=== PATIENT | female | born 1945 | race Caucasian/White ===

== ENCOUNTER 2020-09-30 10:52 | Day surgery (SDC) | payer MEDICARE ==
[2020-09-24 15:54] VITALS: BMI 40.7
[~2020-09-30 10:52] MED LIST: ALPRAZolam 0.25 MG TAB PO PRN; ALPRAZolam 0.5 MG TAB PO PRN; ASPIRIN 325 MG TAB PO STA; ATORVASTATIN 80 MG TAB PO STA; HEPARIN SODIUM,PORCINE 10,000 UNIT in SODIUM CHLORIDE 0.9% 1,000 ML IRRIGATION PRN; HEPARIN SODIUM,PORCINE 2,500 UNIT in SODIUM CHLORIDE 0.9% 250 ML IRRIGATION PRN; NITROGLYCERIN SL TABS 0.4 MG TAB SUBLINGUAL PRN; SODIUM CHLORIDE 0.9% 1,000 ML in EMPTY BAG 1 BAG IV ONE
[2020-09-30] MEDS ORDERED: SODIUM CHLORIDE 0.9% 1,000 ML IV ONE (11:00)
[2020-09-30 11:39] LABS: Basophils # (A) 0.1 k/uL (0-0.2); Basophils % (A) 1 %; Eosinophils # (A) 0.2 k/uL (0-0.7); Eosinophils % (A) 3 %; HCT 46.9 % (34.0-46.0); HGB 15.1 gm/dL (11.4-16.0); Lymphocytes # (A) 1.7 k/uL (1.0-4.8); Lymphocytes % (A) 23 %; MCH 30.8 pg (25.0-35.0); MCHC 32.3 g/dL (31.0-37.0); MCV 95.5 fL (80.0-100.0); Mean Platelet Volume 8.5; Monocytes # (A) 0.4 k/uL (0-1.0); Monocytes % (A) 6 %; Neutrophils # (A) 4.7 k/uL (1.3-7.7); Neutrophils % (A) 66 %; Platelet Count 289 k/uL (150-450); RBC 4.91 m/uL (3.80-5.40); WBC 7.2 k/uL (3.8-10.6)
[2020-09-30 11:45] VITALS: RESP 16; TEMP 98.3
[2020-09-30 11:46] LABS: African American GFR (CKD) >90 (>60 ml/min/1.73 sqM); Anion Gap 10 mmol/L; Blood Urea Nitrogen 14 mg/dL (7-17); Calcium 9.3 mg/dL (8.4-10.2); Carbon Dioxide 25 mmol/L (22-30); Chloride 106 mmol/L (98-107); Glucose 116 mg/dL (74-99); Non-African American GFR(CKD) 84 (>60 ml/min/1.73 sqM); Sodium 141 mmol/L (137-145)
[2020-09-30 11:55] LABS: Potassium 4.5 mmol/L (3.5-5.1)
[2020-09-30] MEDS ORDERED: fentaNYL (PF) 50 MCG/ML 2 ML AMP IV ONE (12:19)
[2020-09-30] MEDS ORDERED: MIDAZOLAM 2 MG/2 ML VIAL IV ONE (12:19)
[2020-09-30] MEDS ORDERED: LIDOCAINE 1% INJ 10MG/ML (20 ML MDV) SQ ONE (12:20)
[2020-09-30] MEDS ORDERED: VERAPAMIL SYRINGE (5 MG/10 ML) INTRAARTER ONE (12:22)
[2020-09-30] MEDS ORDERED: RX INFO: IV CONTRAST WAS GIVEN 1 EACH MISC MISCELLANE PRN (14:03)
--- NOTE | 2020-09-30 14:03 | P.CARDCATH ---
Description of Procedure: PROCEDURES PERFORMED: Left heart catheterization, bilateral coronary angiography, iFR INDICATION: Abnormal stress test HISTORY: Patient is a pleasant 75-year-old female with history of obesity, hypertension and hypothyroidism who has been having increased shortness breath with exertion over the past few years. She had workup with a stress test which showed a large area of ischemia in the anterior LAD distribution. Therefore recommendation was for heart catheterization. CONSENT:I have discussed the risks, benefits and alternative therapies for the above-mentioned procedure and for both sedation/analgesia as well as necessary blood product administration, if indicated, as they pertain to this patient. The patient has indicated understanding and acceptance of the risks and procedures discussed. PROCEDURE: After the risks, benefits and alternatives of the above mentioned procedure explained in detail with the patient, informed consent was obtained. Patient was taken to the catheterization lab and prepped and draped in usual fashion. 1% lidocaine was used to anesthetize the right radial artery. A 6- Honduran sheath was placed in the right radial artery using modified Seldinger technique. Left coronary angiography was performed with a 5-Honduran JL 3.5 catheter and right coronary angiography was performed with a 5-Honduran JR5 catheter in various views. The 5-Honduran FR5 catheter was inserted into the left ventricle and pressure measurements were obtained. The mid LAD had a 40-50% stenosis which was in the area of ischemia and therefore decision was made to perform iFR. The left main was engaged with a CLS 3.5 guide. The 0.014 iFR guidewire was normalized and the left main and then advance 2 cm distal to the LAD lesion. iFR was normal at 0.91. The wire and catheter were then removed. The right radial sheath was removed and a TR band was placed with hemostasis achieved. The patient tolerated the procedure well. Patient was transported back to the post catheterization holding area in stable condition. Conscious Sedation: Patient was monitored under the direct supervision of vision of myself for conscious sedation using Versed and fentanyl for a total duration of 47 minutes HEMODYNAMICS: Aorta: 167/82 LV: 164/2 LVEDP 10mmHg SELECTIVE CORONARY ARTERIOGRAPHY: LEFT MAIN: The left main is a large caliber vessel which bifurcates into the LAD and circumflex. There is no significant stenosis. LEFT ANTERIOR DESCENDING CORONARY ARTERY: LAD is a large caliber vessel which wraps around to the apex. There is a mid LAD 40-50% stenosis at the level of a moderate caliber diagonal 2 branch. iFR was normal at 0.91 LEFT CIRCUMFLEX CORONARY ARTERY: Left circumflex is a moderate caliber vessel without significant stenosis. RIGHT CORONARY ARTERY: The right coronary artery is a large caliber vessel which gives off a PDA and PLV branch and is the dominant vessel. There are mild luminal irregularities up to 30% of the RCA. FINAL IMPRESSION: 1. Mild to moderate CAD as described above including mid LAD 40-50% stenosis. iFR of mid LAD normal at 0.91. 2. Normal left-sided filling pressures 3. False-positive stress test, suspect shifting breast attenuation artifact. PLAN: 1. Aggressive risk factor modification per most recent ACC/AHA guidelines. May consider addition of statin however we will check cholesterol levels. 2. Follow-up in the office in 1-2 weeks.
[2020-09-30 14:48] LABS: Cholesterol 217 mg/dL (<200); HDL Cholesterol 55 mg/dL (40-60); LDL Cholesterol,Calculated 129 mg/dL (0-99); Triglycerides 163 mg/dL (<150)
[2020-09-30 16:11] VITALS: PULSE 68
[2020-09-30 16:45] VITALS: BP 134/74
== END 2020-09-30 16:45 | disposition home or self-care (01) ==
LOC: CATHCVL 10:52
PROVIDERS: ATTEND Internal Medicine
DX: I25.10 Atherosclerotic heart disease of native coronary artery without angina pectoris (principal); I10 Essential (primary) hypertension; E03.9 Hypothyroidism, unspecified; R94.39 Abnormal result of other cardiovascular function study; Z72.0 Tobacco use; E66.9 Obesity, unspecified; Z68.41 Body mass index [BMI] 40.0-44.9, adult; I71.4 Abdominal aortic aneurysm, without rupture; Z82.49 Family history of ischemic heart disease and other diseases of the circulatory system; Z79.890 Hormone replacement therapy; Z91.018 Allergy to other foods
CPT/HCPCS: 93571; 93458; 80061; 80048; 85025; C1887; C1769; C1894; J2250; J2001; J3010; J1644

== ENCOUNTER 2020-12-03 05:59 | Inpatient (IN) | payer MEDICARE ==
[2020-11-29 10:10] VITALS: BMI 41.5
[~2020-12-03 05:59] MED LIST changes: -ALPRAZolam 0.25 MG TAB PO PRN; -ALPRAZolam 0.5 MG TAB PO PRN; -ASPIRIN 325 MG TAB PO STA; -ATORVASTATIN 80 MG TAB PO STA; +DEXAMETHASONE SOD PHOSPHATE 4 MG/ML 1 ML VIAL IV ONE; -HEPARIN SODIUM,PORCINE 10,000 UNIT in SODIUM CHLORIDE 0.9% 1,000 ML IRRIGATION PRN; -HEPARIN SODIUM,PORCINE 2,500 UNIT in SODIUM CHLORIDE 0.9% 250 ML IRRIGATION PRN; +MIDAZOLAM 2 MG/2 ML VIAL IV PRN; -NITROGLYCERIN SL TABS 0.4 MG TAB SUBLINGUAL PRN; +ONDANSETRON 4 MG/2 ML VIAL IVP ONE
[2020-12-03] MEDS ORDERED: ceFAZolin 3 GM in SODIUM CHLORIDE 0.9% 100 ML IVPB PRN (06:00)
[2020-12-03] MEDS ORDERED: SODIUM CHLORIDE 0.9% 1,000 ML IV ONE (06:16)
[2020-12-03 06:41] LABS: Basophils # (A) 0.1 k/uL (0-0.2); Basophils % (A) 1 %; Eosinophils # (A) 0.2 k/uL (0-0.7); Eosinophils % (A) 2 %; HCT 46.3 % (34.0-46.0); HGB 15.4 gm/dL (11.4-16.0); Lymphocytes # (A) 1.9 k/uL (1.0-4.8); Lymphocytes % (A) 23 %; MCH 31.6 pg (25.0-35.0); MCHC 33.2 g/dL (31.0-37.0); MCV 95.2 fL (80.0-100.0); Mean Platelet Volume 8.3; Monocytes # (A) 0.4 k/uL (0-1.0); Monocytes % (A) 5 %; Neutrophils # (A) 5.4 k/uL (1.3-7.7); Neutrophils % (A) 67 %; Platelet Count 284 k/uL (150-450); RBC 4.86 m/uL (3.80-5.40); WBC 8.1 k/uL (3.8-10.6)
[2020-12-03 06:58] LABS: African American GFR (CKD) >90 (>60 ml/min/1.73 sqM); Anion Gap 8 mmol/L; Blood Urea Nitrogen 16 mg/dL (7-17); Calcium 9.4 mg/dL (8.4-10.2); Carbon Dioxide 29 mmol/L (22-30); Chloride 105 mmol/L (98-107); Glucose 128 mg/dL (74-99); Non-African American GFR(CKD) 81 (>60 ml/min/1.73 sqM); Potassium 4.1 mmol/L (3.5-5.1); Sodium 142 mmol/L (137-145)
[2020-12-03] MEDS ORDERED: LIDOCAINE 1% INJ 10MG/ML (20 ML MDV) ONE ×2 (07:15→07:30)
[2020-12-03] MEDS ORDERED: SUCCINYLCHOLINE CHLORIDE 100 MG/5 ML SYR IV ONE (07:30)
[2020-12-03] MEDS ORDERED: HEPARIN SODIUM,PORCINE 10,000 UNIT/ML 1 ML VIAL ONE (07:30)
[2020-12-03] MEDS ORDERED: ROCURONIUM 10 MG/ML (5 ML VIAL) IV ONE (07:30)
[2020-12-03] MEDS ORDERED: NEOSTIGMINE 1 MG/ML 10 ML VIAL ONE (07:30)
[2020-12-03] MEDS ORDERED: PROPOFOL 10 MG/ML 20 ML VIAL IV ONE (07:30)
[2020-12-03] MEDS ORDERED: PHENYLEPHRINE-0.9% NACL SYG 1,000 MCG/10 ML SYRINGE ONE (07:30)
[2020-12-03] MEDS ORDERED: fentaNYL (PF) 50 MCG/ML 2 ML AMP ONE (07:30)
[2020-12-03] MEDS ORDERED: MIDAZOLAM 2 MG/2 ML VIAL ONE (07:30)
[2020-12-03] MEDS ORDERED: GLYCOPYRROLATE 0.2 MG/ML 2 ML VIAL ONE (07:30)
[2020-12-03] MEDS ORDERED: LACTATED RINGERS 1,000 ML IV ONE (09:09)
[2020-12-03] MEDS ORDERED: IOPAMIDOL-370 100ML BTL INJ ONE ×2 (09:18→09:19)
[2020-12-03] MEDS ORDERED: HYDROcodone/APAP 5-325MG 1 EACH TAB PO PRN (09:41)
--- NOTE | 2020-12-03 09:53 | P.OP ---
Description of Procedure: Date: 12/03/2020 Preoperative diagnosis: Asymptomatic Infrarenal 5.8 cm AAA Postoperative diagnosis: Same Procedure: 1. Percutaneous Endovascular aortic repair with [place] device. 2. Ultrasound-guided bilateral common femoral artery access Surgeon: Afsaneh LEE Anesthesia: General Estimated blood loss: 50 cc Complications: None Condition: Stable Disposition: Palpable DP pulses bilaterally. Fluoro Time: 16.3 min Contrast: 95 cc Indications: 75-year-old female with history of AAA measuring 5.8 cm presents to the [facility] for endovascular aortic repair Operative narrative: After written and informed consent was obtained from the patient all risks benefits and complications were described the patient was bro ught to the [facility] and laid in a supine position. The area of the groins were prepped and draped in usual sterile fashion after appropriate anesthetic was performed per the anesthesiologist. A timeout was performed in normal fashion and antibiotics were administered prior to incisions. Utilizing ultrasound bilateral common femoral arteries were visualized demonstrating patency with minimal calcification. Under ultrasound guidance utilizing a multipurpose needle bilateral common femoral arteries were accessed and guidewire was placed followed by deployment of 2 Perclose closure devices for each femoral artery. Utilizing Seldinger technique and 8-Canadian sheath was then placed and patient was administered heparin and followed with ACTs. 035 Glidewire was then placed up the right femoral sheath and exchanged for a Lunderquist wire through an angled glide catheter. The left femoral artery was then utilized and guidewire was placed followed by pigtail catheter and aortogram was obtained. Utilizing the Lunderquist wire a 26 mm main body device was then loaded over the guidewire after the 8-Canadian sheath was removed. Delivery system was then placed 1 cm proximal to the intended landing site and the aortic body was oriented for appropriate access for the contralateral limb. Delivery system was then retracted out of the sheath and the aortic body radiopaque markers were verified to be in the correct position. First segment of the graft was then deployed in normal fashion by releasing and pulling the knob in normal fashion. Balloon injection port was then inflated utilizing a 4-1 saline contrast mixture in order to open the mid crown. Balloon was then deflated. Precise positioning was then performed with utilizing the radiopaque markers and parallax was removed and our to land at the renal arteries. Pigtail catheter was then retracted away from the proximal stent and the proximal stent was released in normal fashion. Polymer was then utilized and filled through the polymer port which was visualized under fluoroscopy. The stiff Lunderquist wire was then retracted within the ipsilateral limb. Attention was then placed to accessing the contralateral limb. Utilizing the Glidewire and angled glide catheter the contralateral limb was accessed and pigtail catheter was placed. Pigtail catheter was then spun to verify intragraft cannulation. A stiff wire was then placed within the pigtail catheter and retrograde angiogram was obtained demonstrating the internal iliac artery takeoff. Measurements were obtained and a 12 x 1 40 mm Ovation limb was chosen to be deployed and deployed in normal fashion. Once completed the aortic main body was completely deployed in normal fashion. Utilizing the balloon balloon angioplasty was performed at the ring to further mold the polymer to the aortic neck. Once completed the aortic body deployment sheath was removed in normal fashion. Pigtail catheter was then placed over the Lunderquist wire and retrograde angiogram was obtained with measurements to the internal iliac artery on the ipsilateral limb. A 14 x 1 40 Ovation limb was chosen and deployed in normal fashion. Once completed two 12 x 40mm balloons were placed up each iliac limb and balloon angioplasty was performed through its entirety. Once completed balloons were removed and pigtail catheter was placed above the graft and final angiogram was obtained demonstrating exclusion of the aneurysm with no evidence of endoleak's. All guidewires and catheters were then removed and the Perclose closure devices were closed in normal fashion. The areas were then cleansed and dressings were placed. The patient tolerated procedure well and had palpable DP pulses and was sent to PACU for recovery.
--- NOTE | 2020-12-03 10:14 | IR ---
EXAMINATION TYPE: IR endorepair dscnd thor aorta DATE OF EXAM: 12/03/2020 CLINICAL HISTORY: Aortic aneurysm. TECHNIQUE: Fluoroscopy. COMPARISON: None. FINDINGS: Fluoroscopic guidance was provided during endovascular aortic aneurysm repair procedure pe rformed by Dr. Shelby. A total of 16.3 minutes of fluoroscopic time was utilized during the procedu re and 114 spot images was acquired. Please refer to procedure note for further details. IMPRESSION: As Above.
[2020-12-03 10:55] LABS: Basophils # (A) 0.1 k/uL (0-0.2); Basophils % (A) 1 %; Eosinophils # (A) 0.2 k/uL (0-0.7); Eosinophils % (A) 2 %; HCT 38.1 % (34.0-46.0); HGB 13.1 gm/dL (11.4-16.0); Lymphocytes # (A) 1.6 k/uL (1.0-4.8); Lymphocytes % (A) 19 %; MCH 32.3 pg (25.0-35.0); MCHC 34.4 g/dL (31.0-37.0); Mean Platelet Volume 8.2; Monocytes # (A) 0.6 k/uL (0-1.0); Monocytes % (A) 6 %; Neutrophils # (A) 6.3 k/uL (1.3-7.7); Neutrophils % (A) 72 %; Platelet Count 223 k/uL (150-450); RBC 4.05 m/uL (3.80-5.40); RDW 12.4 % (11.5-15.5); WBC 8.8 k/uL (3.8-10.6)
[2020-12-03 11:51] LABS: African American GFR (CKD) >90 (>60 ml/min/1.73 sqM); Anion Gap 6 mmol/L; Blood Urea Nitrogen 15 mg/dL (7-17); Calcium 8.2 mg/dL (8.4-10.2); Carbon Dioxide 25 mmol/L (22-30); Chloride 110 mmol/L (98-107); Glucose 122 mg/dL (74-99); Non-African American GFR(CKD) 88 (>60 ml/min/1.73 sqM); Potassium 4.1 mmol/L (3.5-5.1); Sodium 141 mmol/L (137-145)
[2020-12-03] MEDS: HYDROmorphone 0.5 MG/0.5 ML SYRINGE IVP PRN ×3 (12:32→13:17)
[2020-12-03] MEDS: LACTATED RINGERS 1,000 ML IV SCH (17:31)
[2020-12-03] MEDS: SODIUM CHLORIDE 0.9% 1,000 ML IV SCH (17:32)
[2020-12-04] MEDS: SODIUM CHLORIDE 0.9% 1,000 ML IV SCH ×2 (00:09→06:45)
[2020-12-04] MEDS ORDERED: LEVOTHYROXINE 125 MCG TAB PO SCH (06:30)
[2020-12-04] MEDS: LACTATED RINGERS 1,000 ML IV SCH (06:45)
[2020-12-04 08:09] VITALS: BP 137/69; PULSE 81; RESP 18; TEMP 97.6
[2020-12-04 08:31] LABS: African American GFR (CKD) >90 (>60 ml/min/1.73 sqM); Non-African American GFR(CKD) 89 (>60 ml/min/1.73 sqM)
[2020-12-04] MEDS ORDERED: ASPIRIN 81 MG PO SCH (09:00)
[2020-12-04] MEDS ORDERED: ATORVASTATIN 40 MG TAB PO SCH (09:00)
--- NOTE | 2020-12-04 10:27 | P.DS ---
Providers Date of admission: 12/03/20 05:59 Attending physician: Gary Shelby DO Consults: 12/03/20 05:55 Consult to Anesthesia Routine Consulting Provider: Anesthesia,Services Consult Reason/Comments: General anesthesia for Aortic Stent procedure 12/03/20 13:01 Consult Physician Routine Consulting Provider: Lizeth Braden Consult Reason/Comments: medical management Do you want consulting provider notified?: Yes Primary care physician: Lakesha Mahan [facility] Course: Patient is a 75-year-old female who came into the hospital on 12/03/2020 for a percutaneous repair of an infrarenal abdominal aortic aneurysm. She underwent the procedure without significant issue and tolerated the postoperative period well. She did have one episode of vomiting, which was in her relation due to the pain medication she was given. She is feeling better at this point without any pains. Her extremities and upper sites are clean and dry. She tolerated breakfast. Her vital signs have remained stable. She appears to be in satisfactory condition for discharge. Discharge instructions were given. She'll follow up in the office with her operating surgeon in 10 days to 2 weeks. Patient Condition at Discharge: Good Plan - Discharge Summary Discharge Rx Participant: No New Discharge Prescriptions: No Action Levothyroxine Sodium [Synthroid] 125 mcg PO DAILY Cdb Oil 1 dose PO HS Discharge Medication List Cdb Oil 1 dose PO HS 09/24/20 [History] Levothyroxine Sodium [Synthroid] 125 mcg PO DAILY 09/24/20 [History] Activity/Diet/Wound Care/Special Instructions: Okay for DC at this time. Resume regular activity, no heavy lifting. Resume home medications. Resume regular diet. May shower starting tomorrow Discharge Disposition: HOME SELF-CARE
== END 2020-12-04 12:39 | disposition home or self-care (01) | DRG 269 ==
LOC: 2ORMAIN 05:59 → 3SCARD 16:16
PROVIDERS: ADMIT Surgery; ATTEND Surgery
PROC: 04V03DZ Restriction of Abdominal Aorta with Intraluminal Device, Percutaneous Approach (ICD-10-PCS; principal; 2020-12-03 07:30)
DX: I71.4 Abdominal aortic aneurysm, without rupture (principal); Z20.822 Contact with and (suspected) exposure to COVID-19; R11.10 Vomiting, unspecified; T39.95XA Adverse effect of unspecified nonopioid analgesic, antipyretic and antirheumatic, initial encounter; E05.00 Thyrotoxicosis with diffuse goiter without thyrotoxic crisis or storm; E03.9 Hypothyroidism, unspecified; Z87.891 Personal history of nicotine dependence; Z90.49 Acquired absence of other specified parts of digestive tract; Z90.710 Acquired absence of both cervix and uterus; Z90.89 Acquired absence of other organs
CPT/HCPCS: 34705; 80048; 82565; 85025; 86850; 86900; 86901; 87635

== ENCOUNTER → 2023-02-05 | Outpatient (CLI) | payer MEDICARE ==
[2023-02-05 13:01] LABS: Appearance,Urine Clear (Clear); Bilirubin,Urine Negative (Negative); Blood,Urine Negative (Negative); Color,Urine Light Yellow; Glucose,Urine (UA) Negative (Negative); Ketones,Urine Negative (Negative); Leukocyte Esterase,Urine Negative (Negative); Nitrite,Urine Negative (Negative); Protein,Urine Negative (Negative); Specific Gravity,Urine 1.005 (1.001-1.035); Urobilinogen,Urine <2.0 mg/dL (<2.0)
[2023-02-05 13:04] LABS: Partial Thromboplastin Time 22.7 sec (22.0-30.0); Prothrombin Time 10.5 sec (9.0-12.0)
[2023-02-05 16:05] LABS: ALT 12 U/L (8-44); AST 18 U/L (13-35); Albumin 4.3 d/dL (3.8-4.9); Albumin/Globulin Ratio 1.59 Ratio (1.60-3.17); Alkaline Phosphatase 114 U/L (41-126); BUN/Creat Ratio 13.25 Ratio (12.00-20.00); Blood Urea Nitrogen 10.6 mg/dL (9.0-27.0); Calcium 9.3 mg/dL (8.7-10.3); Carbon Dioxide 27.2 mmol/L (21.6-31.8); Chloride 107 mmol/L (96-109); Globulin 2.7 d/dL (1.6-3.3); Glucose 91 mg/dL (70-110); Sodium 143 mmol/L (135-145); Total Bilirubin 0.9 mg/dL (0.3-1.2)
== END | disposition home or self-care (01) ==
LOC: LABWHC1 11:18
PROVIDERS: ATTEND Orthopaedic Surgery
DX: Z01.818 Encounter for other preprocedural examination (principal); M17.12 Unilateral primary osteoarthritis, left knee
CPT/HCPCS: 36415; 80053; 81003; 85027; 85610; 85730; 87070; 93005

== ENCOUNTER → 2023-02-06 | Outpatient (CLI) | payer MEDICARE ==
[2023-02-07 01:32] LABS: HGB 13.4 d/dL (12.0-15.0); MCH 30.6 pg (27.0-32.0); MCHC 30.5 d/dL (32.0-37.0); MCV 100.5 FL (80.0-97.0); Mean Platelet Volume 12.1 FL (9.5-12.2); NRBC Per 100 WBC 0 X 10*3/uL (0.00-0.01); Platelet Count 250 X 10*3/uL (140-440); RBC 4.38 X 10*6/uL (4.10-5.20); RDW 12.8 % (11.5-14.5); WBC 7.36 X 10*3/uL (4.50-10.00)
== END | disposition home or self-care (01) ==
LOC: LABPAT 13:57
PROVIDERS: ATTEND Orthopaedic Surgery
DX: Z01.812 Encounter for preprocedural laboratory examination (principal); M17.12 Unilateral primary osteoarthritis, left knee
CPT/HCPCS: 36415; 85027

== ENCOUNTER 2023-02-27 05:33 | Day surgery (SDC) | payer MEDICARE ==
[2023-02-21 10:24] VITALS: BMI 39.1
[~2023-02-27 05:33] MED LIST changes: +ACETAMINOPHEN TAB 500 MG TAB PO PRN; -DEXAMETHASONE SOD PHOSPHATE 4 MG/ML 1 ML VIAL IV ONE; +GABAPENTIN 300 MG CAP PO PRN; +MELOXICAM 7.5 MG TAB PO PRN; -MIDAZOLAM 2 MG/2 ML VIAL IV PRN; -ONDANSETRON 4 MG/2 ML VIAL IVP ONE; -SODIUM CHLORIDE 0.9% 1,000 ML in EMPTY BAG 1 BAG IV ONE; +TRANEXAMIC 1,000 MG/100ML-NACL 1,000 MG in SALINE 1 100ML.BAG IVPB PRN
[2023-02-27] MEDS ORDERED: DEXAMETHASONE SOD PHOSPHATE 4 MG/ML 1 ML VIAL IV ONE (05:48)
[2023-02-27] MEDS ORDERED: ONDANSETRON 4 MG/2 ML VIAL IVP ONE (05:48)
[2023-02-27] MEDS ORDERED: MIDAZOLAM 2 MG/2 ML VIAL IV PRN (05:48)
[2023-02-27] MEDS: LACTATED RINGERS 1,000 ML IV SCH (06:10)
[2023-02-27] MEDS ORDERED: LIDOCAINE 1% (10MG/ML) FOR IV START INTRADERMA ONE (06:10)
[2023-02-27] MEDS ORDERED: fentaNYL (PF) 50 MCG/1 ML VIAL IVP ONE (06:31)
[2023-02-27] MEDS ORDERED: SUCCINYLCHOLINE CHLORIDE 200 MG/10 ML VIAL IV ONE (06:57)
[2023-02-27] MEDS ORDERED: PROPOFOL 10 MG/ML 20 ML VIAL IV ONE (06:57)
[2023-02-27] MEDS ORDERED: TRANEXAMIC 1,000 MG/100ML-NACL PREMIX BAG ONE (06:57)
[2023-02-27] MEDS ORDERED: fentaNYL (PF) 50 MCG/ML 2 ML AMP ONE (06:57)
[2023-02-27] MEDS ORDERED: hydrALAZINE HCL 20 MG/ML 1 ML VIAL ONE (06:57)
[2023-02-27] MEDS ORDERED: LIDOCAINE 2% INJ 20 MG/ML (2 ML VIAL) ONE (06:57)
[2023-02-27] MEDS ORDERED: MIDAZOLAM 2 MG/2 ML VIAL ONE (06:57)
[2023-02-27] MEDS ORDERED: ROPIVACAINE 5 MG/ML 30 ML VIAL ONE (06:57)
[2023-02-27] MEDS ORDERED: LABETALOL SYRINGE 5 MG/ML (4 ML SYR) ONE (06:57)
[2023-02-27] MEDS ORDERED: KETAMINE 10 MG/ML 20 ML VIAL ONE (06:57)
[2023-02-27] MEDS ORDERED: HYDROmorphone 0.5 MG/0.5 ML SYRINGE IVP PRN ×4 (07:00→08:54)
[2023-02-27] MEDS ORDERED: ceFAZolin 1,000 MG in SODIUM CHLORIDE 0.9% 1,000 ML IRRIGATION ONE (07:02)
[2023-02-27] MEDS ORDERED: LACTATED RINGERS 1,000 ML IV ONE (07:54)
--- NOTE | 2023-02-27 08:14 | P.ANPRN ---
Procedure Note - Anesthesia - Nerve Block Performed Left Adductor Canal Infusion Time Out Performed: Yes Date of Procedure: 02/27/23 Procedure Start Time: 06:25 Procedure Stop Time: 06:31 Location of Patient: PreOp Indication: Acute Post-Operative Pain, Requested by Surgeon Sedation Type: Sedate with meaningful contact maintained Preparation: Sterile Prep, Sterile Dressing Position: Supine Needle Types: On-Q Needle Gauge: 21 Ultrasound used to visualize needle placement: Yes Ultrasound used to observe medication spread: Yes Injectate: 0.5% Ropivacaine (see comment for volume) (20 ml) Blood Aspirated: No Pain Paresthesia on Injection Noted: No Resistance on Injection: Normal Image Stored and Saved: Yes Events: Uneventful and Well Tolerated Left iPack Single Time Out Performed: Yes Date of Procedure: 02/27/23 Procedure Start Time: 06:15 Procedure Stop Time: 06:18 Location of Patient: PreOp Indication: Acute Post-Operative Pain, Requested by Surgeon Sedation Type: Sedate with meaningful contact maintained Preparation: Sterile Prep Position: Supine Needle Types: Pajunk Needle Gauge: 21 Ultrasound used to visualize needle placement: Yes Ultrasound used to observe medication spread: Yes Injectate: 0.5% Ropivacaine (see comment for volume) (20 ml) Blood Aspirated: No Pain Paresthesia on Injection Noted: No Resistance on Injection: Normal Events: Uneventful and Well Tolerated - Epidural/Spinal Spinal Time Out Performed: Yes Date of Procedure: 02/27/23 Procedure Start Time: 07:28 Procedure Stop Time: 07:38 Location of Patient: OR Indication: Requested by Surgeon Sedation Type: Sedate with meaningful contact maintained Preparation: Sterile Prep Position: Sitting Needle Guage: 25 Blood Aspirated: No Pain Paresthesia on Injection Noted: No Events: Other (see comment) (unable to obtain csf l4/5, l3/4. aboted to GA)
--- NOTE | 2023-02-27 08:19 | P.OP ---
Date of Procedure: 02/27/23 Preoperative Diagnosis: Severe osteoarthritis left knee Postoperative Diagnosis: Severe osteoarthritis left knee Procedure(s) Performed: Left total knee arthroplasty Implants: [employer] Journey II CR Oxinium cruciate retaining femoral component size 7, left [employer] Journey nonporous tibial baseplate size 5, left [employer] Journey II, XLPE Deep Dished articular insert, size 9 mm, Size 5- 6, left [employer] Journey Monica II resurfacing patellar component, oval, 29 mm All components were cemented using Palacos R bone cement The articulation is Oxinium on polyethylene Anesthesia: SHWANA Surgeon: Antonio Beasley Training Coordinator #1: Piper Meng Estimated Blood Loss (ml): 50 Pathology: none sent Condition: stable Disposition: PACU Indications for Procedure: The patient's knee is end-stage, and conservative management has failed. The operation of knee replacement has been discussed at length in the office, as well as potential risks and complications. These are inclusive of, but not limited to: Infection, bleeding, scarring, discomfort, stiffness, blood vessel and nerve damage, need for further surgery, failure to relieve symptoms, persistence, recurrence, or worsening of problems, loosening, dislocation, wear, blood clot, pulmonary embolism, , gait dysfunction, stiffness, and other risks as discussed in the office. Patient elects to proceed and the consent form has been signed. Operative Findings: The operative findings are consistent with severe osteoarthritis of the left knee Description of Procedure: The patient was seen in the preoperative area, the consent was reviewed and the operative site was marked with a skin marker. The patient verified the procedure and the operative site. An adductor canal pain catheter and an iPACK block were placed by anesthesia in the preoperative area. The patient was then brought to the operating room and positioned on the operating room table in the supine position. Preoperative antibiotics and a gram of tranexamic acid were given intravenously. A general anesthetic was administered by the anesthesia department. Care was taken to make sure that all pressure points were adequately padded. A tourniquet was placed on the upper thigh and the lower extremity was prepped with ChloraPrep and draped in usual sterile fashion. A universal time-out was then performed which confirmed the patient's name, surgical site, ALLERGIES, and consent. The lower extremity was then exsanguinated and tourniquet was inflated to 250 mmHg. A standard anterior midline approach to the knee was performed. The skin and subcutaneous tissue were sharply dissected down to the patellar tendon. A medial parapatellar arthrotomy was then performed. The knee was then extended, the patellar was everted, and the knee was flexed. The infra-patellar fat pad was removed in order to enhance exposure. The anterior horns of both menisci were excised, and a release was performed to the posterior medial aspect of the knee. On gross visual inspection, there was complete loss of articular cartilage in the medial and patellofemoral joint spaces. There was also significant cartilage damage in the lateral compartment. There were multiple periarticular osteophytes globally about the knee which were then removed with a Ronguer. The femoral canal was then opened with the 9.5 mm intramedullary drill. The 8 mm intramedullary jose was then inserted into the femoral canal with the distal femoral cutting guide set for 5 of valgus. The distal femoral cutting block was then pinned in place. The intramedullary jose was then removed, and the distal femur was then cut. The cutting block was then removed and the cut was checked for symmetry. The resected bone was then measured to confirm the appropriate distal femoral resection. Next, the sizing guide was then placed and set for 3 external rotation based off of the epicondylar axis and Dale's line. Pins were then placed and the drill holes, and the femur was sized with the sizing stylus. The pins were then removed, and the sizing guide was then removed. The spikes of the appropriate size femoral block was then placed into the predrilled holes, and malleted into place. Two 45 mm pins were then placed into the fixation holes on the cutting block. An marcy wing was then used to ensure there would be no notching with the anterior cut. The anterior condyles were cut without notching. The anterior chord cut was then performed, followed by the posterior cut, posterior chamfer cut, and the anterior chamfer cut. The collateral ligaments were protected during the entire process. The cutting block was then removed. Any remaining bone and osteophytes were removed from the femur with a Ronguer. Attention was then directed to the tibia. The remaining ACL was removed with a Ronguer, and the tibia was then gently subluxed forward with a large bent knee retractor. Any remaining menisci were excised. The posterior lateral corner was cauterized in order to coagulate the lateral geniculate artery. The extra medullary tibial cutting guide was then placed, set for the appropriate rotation, slope, and depth of resection. The proximal tibia cutting guide was then pinned in place. Proximal tibia was then cut and sized. A curved osteotome was then used to remove any posterior osteophytes from the distal femur. The femoral trial was placed. A narrow saw blade was then used to remove the anterior intracondylar femoral bone. The CR notch trial was then placed. The tibial trial was placed with the appropriate-sized insert. The knee was able to fully extend and flex to 130 and was stable throughout all range of motion. The knee was then extended and the patella was everted. Patella was then measured, and then using an osteotomy guide, the patella was cut at the appropriate level. The patellar component was sized. The patellar drill guide was placed and the patella was drilled. The patella trial was then placed. The knee was then taken through range of motion with the patella trial and the patella tracked normally using the no thumbs technique. The patella trial was then removed. The knee was then flexed and lug holes were drilled through the femoral trial and the femoral trial was then removed. The tibial was then re- exposed, and the tibial broach guide was then pinned in place after it was set for the appropriate rotation to allow for the most coverage without overhang. The tibia was then reamed and broached. The femoral canal was plugged with autologous bone. The cut surfaces of bone were then irrigated with pulsatile lavage. The knee was also irrigated with Irrisept solution. The components were then opened, the cement was mixed. Cement was placed on the backside of the femoral, tibial, and patellar components. Cement was then applied to the tibial surface and pressurized into the surface using finger pressurization technique. The tibial component was then applied and excess cement was removed after it was impacted securely noted to be flush with the cut surface. In similar fashion, the cement was applied to the cut femoral surface, pressuriz ed and using finger pressurization the component was impacted in place. Excess cement was removed. The polyethylene spacer was then implanted and locked into position. Patellar component was then applied in a similar technique and the patellar clamp was used to hold patella in place while the cement hardened. The knee was held in full extension while the cement hardened. Once the cement had fully hardened, the knee was reinspected. Any other cement extrusion was removed the final range of motion testing showed range of motion from 0-130 with excellent stability, both medial and laterally and appropriate alignment of the leg. Patella tracked normally[default value] After the cemented hardened, the tourniquet was released and hemostasis was obtained. A second gram of transexamic acid was given intravenously. The knee was again irrigated. The knee was again taken through range of motion and found to be stable throughout all range of motion of 0-130, and the patella tracked normally. The fascia was then closed with 0 Vicryl followed by #2 strata fix suture. The subcutaneous tissue was closed with 3-0 Vicryl and 3-0 strata fix. Exofin glue was used for the skin and placed with the knee in flexion. After the glue had dried, and Optafoam silver impregnated dressing was applied. A lightly compressive dressing was applied using web roll and Gui wrap. Patient was then transferred to the stretcher and taken to recovery room in stable condition. Sponge and needle counts were correct. The web press operator assistant BENEDICTO Shen was required due the complexity surgery and the need for a skilled surgical device sales representative. She assisted in positioning, draping, retraction, and closure of the wound.
[2023-02-27] MEDS ORDERED: NA PHOS,M-B/NA PHOS,DI-BA 133 ML ENEMA RECTAL PRN (08:54)
[2023-02-27] MEDS ORDERED: bisacodyL 10 MG SUPP RECTAL PRN (08:54)
[2023-02-27] MEDS ORDERED: ONDANSETRON 4 MG/2 ML VIAL IVP PRN (08:54)
[2023-02-27] MEDS ORDERED: NALOXONE 0.4 MG/ML 1 ML VIAL IV PRN (08:54)
[2023-02-27] MEDS ORDERED: MAGNESIUM HYDROXIDE 2,400 MG/30 ML CUP PO PRN (08:54)
[2023-02-27] MEDS ORDERED: HYDROcodone/APAP 7.5-325MG 1 EACH TAB PO PRN (08:55)
[2023-02-27] MEDS ORDERED: ROPIVACAINE 1,100 MG, SODIUM CHLORIDE 0.9% 500 ML 330 ML, EMPTY PAIN BALL 1 EACH MISCELLANE PRN ×2 (09:05)
--- NOTE | 2023-02-27 09:47 | XR ---
EXAMINATION TYPE: XR knee limited LT DATE OF EXAM: 02/27/2023 COMPARISON: NONE HISTORY: 78-year-old female evaluation for postoperative abnormality and alignment TECHNIQUE: 2 views FINDINGS: Images show placement of left total knee arthroplasty. Both distal femoral and proximal tibial compon ents of the prosthesis are well seated without periprosthetic fracture. Alignment grossly anatomic. A nterior soft tissue swelling with scattered soft tissue air as well as intra-articular air related to recent operation. IMPRESSION: Uncomplicated postoperative appearance left total knee arthroplasty.
[2023-02-27] MEDS ORDERED: LORATADINE 10 MG TAB PO PRN (10:53)
[2023-02-27] MEDS: LEVOTHYROXINE 125 MCG TAB PO SCH (11:09)
[2023-02-27] MEDS: SODIUM CHLORIDE 0.9% 1,000 ML IV SCH ×2 (11:09→23:54)
[2023-02-27] MEDS: ATORVASTATIN 20 MG TAB PO SCH (11:09)
[2023-02-27 11:51] LABS: African American GFR (CKD) >90 (>60 ml/min/1.73 sqM); Anion Gap 5 mmol/L; Blood Urea Nitrogen 15 mg/dL (7-17); Calcium 8.3 mg/dL (8.4-10.2); Carbon Dioxide 24 mmol/L (22-30); Chloride 109 mmol/L (98-107); Glucose 155 mg/dL (74-99); Non-African American GFR(CKD) 85 (>60 ml/min/1.73 sqM); Potassium 4.2 mmol/L (3.5-5.1); Sodium 138 mmol/L (137-145)
[2023-02-27] MEDS ORDERED: SODIUM CHLORIDE 0.9% 500 ML 500 ML IV ONE (14:30)
[2023-02-27 19:58] VITALS: RESP 17
[2023-02-27] MEDS: HYDROcodone/APAP 7.5-325MG 1 EACH TAB PO PRN (20:33)
[2023-02-27] MEDS: ASPIRIN 325 MG TAB PO SCH (20:33)
[2023-02-27] MEDS ORDERED: SENNOSIDES-DOCUSATE SODIUM 1 EACH TAB PO SCH (21:00)
[2023-02-28] MEDS: LACTATED RINGERS 1,000 ML IV SCH (00:47)
--- NOTE | 2023-02-28 02:48 | P.CONS ---
History of Present Illness - Reason for Consult Consult date: 02/27/23 Medical management, postop total left knee arthroplasty - History of Present Illness This is a 78-year-old female who was recently admitted under orthopedic services underwent left total knee arthroplasty and is postop day 0. Patient reports she follows with Dr. Dante Burt in the outpatient setting with past medical history of hypothyroidism with Graves' disease, DVT, osteoarthritis, repair of AAA, obesity. Patient reports she went to her PCP for presurgical clearance. Patient denies chest pain, shortness of breath and is currently maintained on 2 L via nasal cannula postoperatively and recommend to wean FiO2 as tolerated. Incentive spirometer ordered and would encourage at least 10 times every hour while awake. Patient to be evaluated physical therapy in a.m. Patient is reporting some dizziness post IV narcotics of Dilaudid used and would recommend limiting and using oral pain medications. Will obtain a BMP and give a normal saline 500 mL bolus. Recommend monitor blood pressures closely for any postoperative hypotension. Review Of Systems: Constitutional: No fever, no chills, no night sweats. No weight change. No weakness, fatigue or lethargy. No daytime sleepiness. EENT: No headache. No blurred vision or double vision, no loss of vision. No loss of Hearing, no ringing in the ears, no dizziness. No nasal drainage or congestion. No epistaxis. No sore throat. Lungs: No shortness of breath, cough, no sputum production. No wheezing. Cardiovascular: No chest pain, no lower extremity edema. No palpitations. No paroxysmal nocturnal dyspnea. No orthopnea. No lightheadedness, reports dizziness. No syncopal episodes. Abdominal: No abdominal pain. No nausea, vomiting. No diarrhea. No constipation. No bloody or tarry stools.. No loss of appetite. Genitourinary: No dysuria, increased frequency, urgency. No urinary retention. Musculoskeletal: No myalgias. No muscle weakness, no gait dysfunction, no frequent falls. No back pain. No neck pain. Reports left leg pain Integumentary: No wounds, no lesions. No rash or pruritus. No unusual bruising. No change in hair or nails. Neurologic: No aphasia. No facial droop. No change in mentation. No head injury. No headache. No paralysis. No paresthesia. Psychiatric: No depression. No anxiety. No mood swings. Endocrine: No abnormal blood sugars. No weight change. No excessive sweating or thirst. No cold intolerance. PHYSICAL EXAMINATION: GENERAL: The patient is alert and oriented x4, Well developed, well nourished. Obese HEENT: Pupils are round and equally reacting to light. EOMI. no scleral icterus. No conjunctival pallor. Normocephalic, atraumatic. No pharyngeal erythema. No thyromegaly. CARDIOVASCULAR: S1 and S2 muffled PULMONARY: diminished breath sounds bilaterally with no wheezing or rhonchi noted. ABDOMEN: soft. Nontender on exam. obese. non-distended, normoactive bowel sounds. No palpable organomegaly. MUSCULOSKELETAL: No joint swelling or deformity. EXTREMITIES: No cyanosis, clubbing, or pedal edema. Left surgical site is currently Gui wrapped in dressings are dry and intact NEUROLOGICAL: Gross neurological examination did not reveal any focal deficits. Diffuse weakness SKIN: No rashes. Assessment: Status post left total knee arthroplasty History of thyroid disorder with Graves' disease Osteoarthritis history History of DVT History of AAA repair in 2020 Obesity with a BMI of 39.1 Former smoker GI prophylaxis DVT prophylaxis Full code Plan: Patient will be continued on current medications for pain and DVT per orthopedics Patient experienced some dizziness shortly after Dilaudid and would recommend oral narcotics and avoiding IV pain medications if possible Home medications reviewed and resume as appropriate BMP ordered within normal limits and will give 500 ml bolus of normal saline, monitor vital signs for any postoperative hypotension Patient be evaluated by physical therapy in the a.m. Incentive spirometer ordered and encouraged to use at least 10 times every hour while awake We will continue to follow with orthopedics during hospitalization. Thank you kindly for this consultation. The impression and plan of care has been dictated by Bhavani Blanco, nurse practitioner as directed. Dr. Wm MD I have performed a history and examination and MDM of this patient, discussed the same with the dictator, and agree with the dictator's assessment and plan as written ,documented as a scribe. Based on total visit time, I have performed more than 50% of the visit. Any additional findings or plans will be noted. Past Medical History Past Medical History: Deep Vein Thrombosis (DVT), Osteoarthritis (OA), Thyroid Disorder Additional Past Medical History / Comment(s): Graves Disease., Varicose Veins., heart palpitations, hx of AAA with repair History of Any Multi-Drug Resistant Organisms: None Reported Past Surgical History: Cholecystectomy, Heart Catheterization, Hysterectomy, Tonsillectomy Additional Past Surgical History / Comment(s): D&C's X2., repair AAA (12/03/2020) Past Anesthesia/Blood Transfusion Reactions: Motion Sickness Additional Past Anesthesia/Blood Transfusion Reaction / Comm: states pain med given after AAA repair caused dizziness and vomiting Smoking Status: Never smoker - Past Family History Sister(s) Family Medical History: Cancer Additional Family Medical History / Comment(s): breast cancer Medications and Allergies Home Medications Medication Instructions Recorded Confirmed Type Levothyroxine Sodium [Synthroid] 125 mcg PO DAILY 09/24/20 02/21/23 History Acetaminophen [Tylenol Arthritis] 650 mg PO DIRECTED PRN 02/21/23 02/21/23 History Atorvastatin [Lipitor] 20 mg PO DAILY 02/21/23 02/21/23 History Cannabidiol (Cbd) [Epidiolex] 1 dose PO HS 02/21/23 02/21/23 History Loratadine [Claritin] 10 mg PO DAILY PRN 02/21/23 02/21/23 History Aspirin 325 mg PO BID #60 tab 02/27/23 Rx HYDROcodone/APAP 7.5-325MG [[place] 1 - 2 tab PO Q6H PRN #32 tab 02/27/23 Rx 7.5-325] Sennosides [Senokot] 2 tab PO DAILY PRN #60 tablet 02/27/23 Rx Allergies Allergy/AdvReac Type Severity Reaction Status Date / Time Mushroom Allergy Severe hives, Verified 02/21/23 10:09 dyspnea, hospitalized mold Allergy Unknown allergy Verified 02/21/23 10:10 symptoms nickel AdvReac Unknown Rash/Hives Verified 02/21/23 10:09 caffeine Allergy hives, Uncoded 02/21/23 10:09 dyspnea Physical Exam Vitals: Vital Signs Temp Pulse Pulse Resp BP BP BP 02/27/23 11:23 02/27/23 09:45 84 16 104/52 02/27/23 09:30 77 16 96/51 02/27/23 09:15 85 16 106/51 02/27/23 09:00 79 16 107/51 02/27/23 08:49 96.8 F L 85 16 142/65 02/27/23 06:50 79 16 166/81 02/27/23 06:00 97.7 F 79 16 194/95 Pulse Ox 02/27/23 11:23 93 L 02/27/23 09:45 97 02/27/23 09:30 97 02/27/23 09:15 97 02/27/23 09:00 97 02/27/23 08:49 97 02/27/23 06:50 99 02/27/23 06:00 98 Intake and Output 02/26/23 02/27/23 02/27/23 22:59 06:59 14:59 Intake Total 300 1301 Output Total 50 Balance 300 1251 Intake: IV 300 1301 Output: Estimated Blood Loss 50 Other: Weight 113.3 kg 113.3 kg Results CBC & Chem 7: 02/27/23 11:14 Labs: Abnormal Lab Results - Last 24 Hours (Table) 02/27/23 Range/Units 11:14 Chloride 109 H (98-107) mmol/L Glucose 155 H (74-99) mg/dL Calcium 8.3 L (8.4-10.2) mg/dL
[2023-02-28] MEDS: LEVOTHYROXINE 125 MCG TAB PO SCH (05:49)
[2023-02-28] MEDS: HYDROcodone/APAP 7.5-325MG 1 EACH TAB PO PRN (05:49)
--- NOTE | 2023-02-28 06:46 | P.PN ---
Progress Note - Text Progress Note Date: 02/28/23 Postoperative day # 1 status post total knee arthroplasty, and adductor canal catheter placed for postoperative analgesia, currently at ropivacaine 0.2% 8 mL per hour and continuous infusion, visual analogue scale is 3/10, patient using oral pain medication for breakthrough pain. Assessment and plan= Acute postoperative pain, adductor canal catheter for pain control, pain is well controlled we'll continue the same management.
[2023-02-28 07:43] VITALS: BP 125/64; PULSE 86; TEMP 98.7
[2023-02-28] MEDS: ASPIRIN 325 MG TAB PO SCH (08:20)
[2023-02-28] MEDS: ATORVASTATIN 20 MG TAB PO SCH (08:20)
--- NOTE | 2023-02-28 11:00 | P.DS ---
Providers Expected date of discharge: 02/28/23 Attending physician: Antonio Beasley Consults: 02/27/23 08:54 Consult Physician Routine Consulting Provider: Marva Carvalho Consult Reason/Comments: medical management Do you want consulting provider notified?: Yes Primary care physician: Dante Burt - Discharge Diagnosis(es) (1) Osteoarthritis of left knee Current Visit: Yes Status: Acute (2) Status post total left knee replacement Current Visit: Yes Status: Acute Hospital Course: This is a 78-year-old female with known history of degenerative arthritis of the left knee. The patient presented for evaluation as an outpatient. After discussion and consideration patient elects to proceed with total knee arthroplasty. The patient is seen preoperatively by Dr. Beasley and medically cleared for surgery by their primary care physician. Patient is admitted to [facility] on 02/27/2023 for total knee arthroplasty. The procedure is performed without complication or sequelae. The patient is doing well postoperatively. Labs and vital signs are stable on day of discharge. On day of discharge patient's knee incision is healing well. There is minimal erythema. There is no drainage noted at this time. There is minimal soft tissu e swelling to the knee. Patient has full foot and ankle motion without difficulty or pain. Calf is soft and nontender to palpation. Neurovascular status to the left lower extremity is intact. Patient is discharged home in good condition. Please see med rec for accurate list of home medications. Plan - Discharge Summary Discharge Rx Participant: Yes New Discharge Prescriptions: New Sennosides [Senokot] 2 tab PO DAILY PRN #60 tablet PRN Reason: Constipation Aspirin 325 mg PO BID #60 tab HYDROcodone/APAP 7.5-325MG [[place] 7.5-325] 1 - 2 tab PO Q6H PRN #32 tab PRN Reason: Pain Continue Levothyroxine Sodium [Synthroid] 125 mcg PO DAILY Atorvastatin [Lipitor] 20 mg PO DAILY Cannabidiol (Cbd) [Epidiolex] 1 dose PO HS Loratadine [Claritin] 10 mg PO DAILY PRN PRN Reason: Allergy Symptoms Acetaminophen [Tylenol Arthritis] 650 mg PO DIRECTED PRN PRN Reason: Pain Discharge Medication List Levothyroxine Sodium [Synthroid] 125 mcg PO DAILY 09/24/20 [History] Acetaminophen [Tylenol Arthritis] 650 mg PO DIRECTED PRN 02/21/23 [History] Atorvastatin [Lipitor] 20 mg PO DAILY 02/21/23 [History] Cannabidiol (Cbd) [Epidiolex] 1 dose PO HS 02/21/23 [History] Loratadine [Claritin] 10 mg PO DAILY PRN 02/21/23 [History] Aspirin 325 mg PO BID #60 tab 02/27/23 [Rx] HYDROcodone/APAP 7.5-325MG [[place] 7.5-325] 1 - 2 tab PO Q6H PRN #32 tab 02/27/23 [Rx] Sennosides [Senokot] 2 tab PO DAILY PRN #60 tablet 02/27/23 [Rx] Follow up Appointment(s)/Referral(s): [facility],Equipment [NON-STAFF] - As Needed (*Please call [facility] once home to arrange delivery of the Continuous Passive Motion (CPM) machine. ) [facility] [NON-STAFF] - 1-2 Days ([facility] will call you to schedule your in home physical therapy visits. ) Antonio Beasley DO [Doctor of Osteopathic Medicine] - 03/12/23 1:30 pm (with Piper Meng) Activity/Diet/Wound Care/Special Instructions: Weightbearing as tolerated with a walker. CPM 5-6h daily as tolerated. Leave dressing intact. Dressing may be removed by home care nurse or by patient in 7 days. Then change dressing twice daily until follow up. May shower with initial dressing intact and after removal. If dressing become saturated, please remove. Recommend use of compression stockings daily until follow up to help prevent swelling and blood clots. May remove at night before sleeping. Please take aspirin 325mg twice daily for 30 days to prevent blood clots. Please follow up with [facility] and call with any questions or concerns, . Discharge Disposition: HOME WITH HOME HEALTH SERVICES
[2023-02-28 11:53] LABS: Basophils # (A) 0.04 X 10*3/uL (0.00-0.10); Basophils % (A) 0.4 %; Eosinophils # (A) 0.02 X 10*3/uL (0.04-0.35); Eosinophils % (A) 0.2 %; HCT 35.6 % (37.2-46.3); HGB 11.6 d/dL (12.0-15.0); Lymphocytes # (A) 1.34 X 10*3/uL (0.90-5.00); Lymphocytes % (A) 13.2 %; MCH 32.3 pg (27.0-32.0); MCHC 32.6 d/dL (32.0-37.0); MCV 99.2 FL (80.0-97.0); Mean Platelet Volume 10.7 FL (9.5-12.2); Monocytes # (A) 1.27 X 10*3/uL (0.20-1.00); Monocytes % (A) 12.5 %; NRBC Per 100 WBC 0 X 10*3/uL (0.00-0.01); Neutrophils # (A) 7.43 X 10*3/uL (1.80-7.70); Neutrophils % (A) 73.3 %; Platelet Count 231 X 10*3/uL (140-440); RBC 3.59 X 10*6/uL (4.10-5.20); RDW 12.7 % (11.5-14.5); WBC 10.14 X 10*3/uL (4.50-10.00)
--- NOTE | 2023-03-01 06:17 | P.PN ---
Subjective Progress Note Date: 02/28/23 - Reason for Consult Consult date: 02/27/23 Medical management, postop total left knee arthroplasty - History of Present Illness This is a 78-year-old female who was recently admitted under orthopedic services underwent left total knee arthroplasty and is postop day 0. Patient reports she follows with Dr. Dante Burt in the outpatient setting with past medical history of hypothyroidism with Graves' disease, DVT, osteoarthritis, repair of AAA, obesity. Patient reports she went to her PCP for presurgical clearance. Patient denies chest pain, shortness of breath and is currently maintained on 2 L via nasal cannula postoperatively and recommend to wean FiO2 as tolerated. Incentive spirometer ordered and would encourage at least 10 times every hour while awake. Patient to be evaluated physical therapy in a.m. Patient is reporting some dizziness post IV narcotics of Dilaudid used and would recommend limiting and using oral pain medications. Will obtain a BMP and give a normal saline 500 mL bolus. Recommend monitor blood pressures closely for any postoperative hypotension. 02/28/2023 Patient is seen and evaluated in follow-up today and reports to feeling well. Patient was able to work with physical therapy including the stairs and is planning on going home today. Patient reports pain is currently managed on regimen of oral pain medications. Patient reports brief episode of dizziness yesterday after Dilaudid has not occurred again patient denies feeling dizzy, lightheaded. Patient denies shortness of breath or chest pain and reports to tolerating diet with no reported nausea or vomiting. Patient is passing gas with no bowel movement as of yet. Patient is awaiting with no difficulties. Patient is medically stable for discharge home today. Encourage the patient to take the incentive spirometer home and continue using at least 10 times every hour while awake. Review of systems: Constitutional: No reports of fatigue, fever, or chills Cardiovascular: No reports of chest pain or palpitations Respiratory: No reports of shortness of breath or cough GI: No reports of nausea, vomiting, or diarrhea : No reports of dysuria or retention Neurovascular: No reports of weakness or numbness, reports some left knee discomfort All medications have been reviewed PHYSICAL EXAMINATION: GENERAL: The patient is alert and oriented x4, Well developed, well nourished. Obese HEENT: Pupils are round and equally reacting to light. EOMI. no scleral icterus. No conjunctival pallor. Normocephalic, atraumatic. No pharyngeal erythema. No thyromegaly. CARDIOVASCULAR: S1 and S2 muffled PULMONARY: diminished breath sounds bilaterally with no wheezing or rhonchi noted. ABDOMEN: soft. Nontender on exam. obese. non-distended, normoactive bowel sounds. No palpable organomegaly. MUSCULOSKELETAL: No joint swelling or deformity. EXTREMITIES: No cyanosis, clubbing, or pedal edema. Left surgical site is currently Gui wrapped in dressings are dry and intact NEUROLOGICAL: Gross neurological examination did not reveal any focal deficits. Diffuse weakness SKIN: No rashes. Assessment: Status post left total knee arthroplasty History of thyroid disorder with Graves' disease Osteoarthritis history History of DVT History of AAA repair in 2020 Obesity with a BMI of 39.1 Former smoker GI prophylaxis DVT prophylaxis Full code Plan: Patient will be continued on current medications for pain and DVT per orthopedics Patient reports no further dizziness and has been maintaining pain control on or al medications Home medications reviewed and resume as appropriate. Patient instructed to resume rest of home medications when at home and outpatient follow-up with primary care provider Incentive spirometer ordered and encouraged to use at least 10 times every hour while awake. Patient instructed to take incentive spirometer home and continue using Patient is planning on discharge today. Patient is medically stable for discharge We will continue to follow with orthopedics during hospitalization. Thank you kindly for this consultation. The impression and plan of care has been dictated by Bhavani Blanco, nurse practitioner as directed. Dr. Wm MD I have performed a history and examination and MDM of this patient, discussed the same with the dictator, and agree with the dictator's assessment and plan as written ,documented as a scribe. Based on total visit time, I have performed more than 50% of the visit. Any additional findings or plans will be noted. Objective - Vital Signs Vital signs: Vital Signs Temp 98.7 F 02/28/23 07:41 Pulse 86 02/28/23 07:41 Resp 17 02/28/23 07:41 BP 125/64 02/28/23 07:41 Pulse Ox 90 L 02/28/23 07:41 FiO2 Intake & Output 02/27/23 02/28/23 02/28/23 18:59 06:59 18:59 Intake Total 2381 320 Output Total 50 Balance 2331 320 Weight 113.3 kg Intake: IV 1301 Oral 1080 320 Output: Estimated Blood Loss 50 Other: # Voids 1 2 - Labs CBC & Chem 7: 02/28/23 06:45 02/27/23 11:14 Labs: Abnormal Lab Results - Last 24 Hours (Table) 02/27/23 Range/Units 11:14 Chloride 109 H (98-107) mmol/L Glucose 155 H (74-99) mg/dL Calcium 8.3 L (8.4-10.2) mg/dL
== END 2023-02-28 14:11 | disposition home health service (06) ==
LOC: OR 05:33 → 4SSUR 08:49 → OR 02-28 14:11
PROVIDERS: ATTEND Orthopaedic Surgery
DX: M17.12 Unilateral primary osteoarthritis, left knee (principal); G89.18 Other acute postprocedural pain; I48.91 Unspecified atrial fibrillation; I10 Essential (primary) hypertension; E78.5 Hyperlipidemia, unspecified; Z90.710 Acquired absence of both cervix and uterus; Z90.89 Acquired absence of other organs; Z90.49 Acquired absence of other specified parts of digestive tract
CPT/HCPCS: 97161; 64999; 64448; 80048; 85025; 73560; 27447; C1713; C1776; C1751; J2250; J1100; J0690 ×2; J2405; J2795; J1170; J3010

== ENCOUNTER → 2023-10-03 | Outpatient (CLI) | payer MEDICARE ==
[2023-10-03 12:06] LABS: Partial Thromboplastin Time 23.3 sec (22.0-30.0); Prothrombin Time 10.9 sec (10.0-12.5)
[2023-10-03 17:35] LABS: Basophils # (A) 0.07 X 10*3/uL (0.00-0.10); Eosinophils # (A) 0.25 X 10*3/uL (0.04-0.35); Eosinophils % (A) 3.7 %; HCT 43.3 % (37.2-46.3); HGB 14.3 g/dL (12.0-15.0); Lymphocytes # (A) 1.89 X 10*3/uL (0.90-5.00); Lymphocytes % (A) 28.3 %; MCH 31.4 pg (27.0-32.0); Mean Platelet Volume 11.4 FL (9.5-12.2); Monocytes # (A) 0.71 X 10*3/uL (0.20-1.00); Monocytes % (A) 10.6 %; NRBC Per 100 WBC 0 X 10*3/uL (0.00-0.01); Neutrophils # (A) 3.75 X 10*3/uL (1.80-7.70); Neutrophils % (A) 56.1 %; Platelet Count 270 X 10*3/uL (140-440); RBC 4.56 X 10*6/uL (4.10-5.20); RDW 12.9 % (11.5-14.5); WBC 6.69 X 10*3/uL (4.50-10.00)
[2023-10-03 17:50] LABS: ALT 9 U/L (8-44); AST 20 U/L (13-35); Albumin 4.1 g/dL (3.8-4.9); Albumin/Globulin Ratio 1.52 Ratio (1.60-3.17); Alkaline Phosphatase 112 U/L (41-126); BUN/Creat Ratio 18.25 Ratio (12.00-20.00); Blood Urea Nitrogen 14.6 mg/dL (9.0-27.0); Calcium 9.5 mg/dL (8.7-10.3); Carbon Dioxide 26.5 mmol/L (21.6-31.8); Chloride 107 mmol/L (96-109); Globulin 2.7 g/dL (1.6-3.3); Glucose 82 mg/dL (70-110); Potassium 4.3 mmol/L (3.5-5.5); Sodium 144 mmol/L (135-145); Total Protein 6.8 g/dL (6.2-8.2)
== END | disposition home or self-care (01) ==
LOC: LABPAT 10:58
PROVIDERS: ATTEND Orthopaedic Surgery
DX: Z01.818 Encounter for other preprocedural examination (principal); M17.11 Unilateral primary osteoarthritis, right knee; Z22.322 Carrier or suspected carrier of Methicillin resistant Staphylococcus aureus; R94.31 Abnormal electrocardiogram [ECG] [EKG]
CPT/HCPCS: 36415; 80053; 85025; 85610; 85730; 87070; 93005

== ENCOUNTER → 2023-11-21 | Outpatient (CLI) | payer MEDICARE ==
[2023-11-21 12:40] LABS: Prothrombin Time 10.7 sec (10.0-12.5)
[2023-11-21 12:41] LABS: Partial Thromboplastin Time 23.1 sec (22.0-30.0)
[2023-11-21 15:07] LABS: HCT 41.3 % (37.2-46.3); HGB 13.6 g/dL (12.0-15.0); MCH 31.8 pg (27.0-32.0); MCHC 32.9 g/dL (32.0-37.0); MCV 96.5 FL (80.0-97.0); Mean Platelet Volume 11.2 FL (9.5-12.2); NRBC Per 100 WBC 0 X 10*3/uL (0.00-0.01); Platelet Count 281 X 10*3/uL (140-440); RBC 4.28 X 10*6/uL (4.10-5.20); RDW 12.8 % (11.5-14.5); WBC 6.69 X 10*3/uL (4.50-10.00)
[2023-11-21 15:22] LABS: ALT 11 U/L (8-44); AST 20 U/L (13-35); Albumin 4.1 g/dL (3.8-4.9); Albumin/Globulin Ratio 1.52 Ratio (1.60-3.17); Alkaline Phosphatase 113 U/L (41-126); BUN/Creat Ratio 18.25 Ratio (12.00-20.00); Blood Urea Nitrogen 14.6 mg/dL (9.0-27.0); Chloride 107 mmol/L (96-109); Globulin 2.7 g/dL (1.6-3.3); Glucose 83 mg/dL (70-110); Potassium 4.4 mmol/L (3.5-5.5); Sodium 144 mmol/L (135-145); Total Bilirubin 0.4 mg/dL (0.3-1.2); Total Protein 6.8 g/dL (6.2-8.2)
== END | disposition home or self-care (01) ==
LOC: LABPAT 11:23
PROVIDERS: ATTEND Orthopaedic Surgery
DX: Z22.322 Carrier or suspected carrier of Methicillin resistant Staphylococcus aureus (principal); Z01.812 Encounter for preprocedural laboratory examination
CPT/HCPCS: 36415; 80053; 85027; 85610; 85730; 87070

== ENCOUNTER 2023-12-11 07:18 | Day surgery (SDC) | payer MEDICARE ==
[~2023-12-11 07:18] MED LIST changes: -ACETAMINOPHEN TAB 500 MG TAB PO PRN; -GABAPENTIN 300 MG CAP PO PRN; +LIDOCAINE 1% (10MG/ML) FOR IV START INTRADERMA PRN; -MELOXICAM 7.5 MG TAB PO PRN; +MIDAZOLAM 2 MG/2 ML VIAL IV PRN
[2023-12-11] MEDS: LACTATED RINGERS 1,000 ML IV ONE (07:50)
[2023-12-11] MEDS: ONDANSETRON 4 MG/2 ML VIAL IVP ONE (08:30)
[2023-12-11] MEDS: DEXAMETHASONE SOD PHOSPHATE 4 MG/ML 1 ML VIAL IV ONE (08:30)
[2023-12-11] MEDS: GABAPENTIN 300 MG CAP PO PRN (08:30)
[2023-12-11] MEDS: ACETAMINOPHEN TAB 500 MG TAB PO PRN (08:30)
[2023-12-11] MEDS: MELOXICAM 7.5 MG TAB PO PRN (08:30)
[2023-12-11] MEDS: MIDAZOLAM 2 MG/2 ML VIAL IVP ONE (08:31)
[2023-12-11] MEDS ORDERED: ONDANSETRON 4 MG/2 ML VIAL IVP PRN (08:46)
[2023-12-11] MEDS ORDERED: MAGNESIUM HYDROXIDE 2,400 MG/30 ML CUP PO PRN (08:46)
[2023-12-11] MEDS ORDERED: bisacodyL 10 MG SUPP RECTAL PRN (08:46)
[2023-12-11] MEDS ORDERED: NALOXONE 0.4 MG/ML 1 ML VIAL IV PRN (08:46)
[2023-12-11] MEDS ORDERED: NA PHOS,M-B/NA PHOS,DI-BA 133 ML ENEMA RECTAL PRN (08:46)
[2023-12-11] MEDS ORDERED: HYDROmorphone 0.5 MG/0.5 ML SYRINGE IVP PRN ×3 (08:46)
[2023-12-11] MEDS ORDERED: HYDROcodone/APAP 7.5-325MG 1 EACH TAB PO PRN (08:49)
[2023-12-11] MEDS ORDERED: PROPOFOL 10 MG/ML 20 ML VIAL IV ONE (08:57)
[2023-12-11] MEDS ORDERED: GLYCOPYRROLATE 0.2 MG/ML 2 ML VIAL ONE (08:57)
[2023-12-11] MEDS ORDERED: ROCURONIUM 10 MG/ML (5 ML VIAL) IV ONE (08:57)
[2023-12-11] MEDS ORDERED: ROPIVACAINE 5 MG/ML 30 ML VIAL ONE (08:57)
[2023-12-11] MEDS ORDERED: SODIUM CHLORIDE 0.9% (PF) 10 ML VIAL ONE (08:57)
[2023-12-11] MEDS ORDERED: fentaNYL (PF) 50 MCG/ML 2 ML AMP ONE (08:57)
[2023-12-11] MEDS ORDERED: LIDOCAINE 1%-EPI 1:100,000 20 ML VIAL ONE (08:57)
[2023-12-11] MEDS ORDERED: SUCCINYLCHOLINE CHLORIDE 200 MG/10 ML VIAL IV ONE (08:57)
[2023-12-11] MEDS ORDERED: NEOSTIGMINE 1 MG/ML 10 ML VIAL ONE (08:57)
[2023-12-11] MEDS ORDERED: TRANEXAMIC 1,000 MG/100ML-NACL PREMIX BAG ONE (08:57)
[2023-12-11] MEDS ORDERED: LIDOCAINE 1% INJ 10MG/ML (20 ML MDV) ONE (08:57)
--- NOTE | 2023-12-11 09:13 | P.ANPRN ---
Procedure Note - Anesthesia - Nerve Block Performed Right Adductor Canal Infusion Date of Procedure: 12/11/23 Procedure Start Time: 08:36 Procedure Stop Time: 08:58 Indication: Acute Post-Operative Pain, Requested by Surgeon Sedation Type: Sedate with meaningful contact maintained Preparation: Sterile Prep Position: Supine Catheter: Indwelling Needle Types: On-Q Needle Gauge: 18 Ultrasound used to visualize needle placement: Yes Ultrasound used to observe medication spread: Yes Injectate: 0.5% Ropivacaine (see comment for volume) (20) Blood Aspirated: No Pain Paresthesia on Injection Noted: No Resistance on Injection: Normal Image Stored and Saved: Yes Events: Uneventful and Well Tolerated
--- NOTE | 2023-12-11 09:14 | P.ANPRN ---
Procedure Note - Anesthesia - Nerve Block Performed Right Merlin Single Date of Procedure: 12/11/23 Procedure Start Time: 08:30 Procedure Stop Time: 08:35 Indication: Acute Post-Operative Pain, Requested by Surgeon Sedation Type: Sedate with meaningful contact maintained Preparation: Sterile Prep Position: Supine Catheter: None Needle Types: [place] Needle Gauge: 21 Ultrasound used to visualize needle placement: Yes Ultrasound used to observe medication spread: Yes Injectate: 0.5% Ropivacaine (see comment for volume) Blood Aspirated: No Pain Paresthesia on Injection Noted: No Resistance on Injection: Normal Image Stored and Saved: Yes Events: Uneventful and Well Tolerated (20 mls of 0.25% Ropivacaine)
[2023-12-11] MEDS: ceFAZolin 1,000 MG in SODIUM CHLORIDE 0.9% 1,000 ML IRRIGATION ONE (09:17)
--- NOTE | 2023-12-11 10:13 | P.OP ---
Date of Procedure: 12/11/23 Preoperative Diagnosis: severe osteoarthritis right knee Postoperative Diagnosis: severe osteoarthritis right knee Procedure(s) Performed: right total knee arthroplasty Implants: [employer] Journey II CR Oxinium cruciate retaining femoral component size 6, right [employer] Journey nonporous tibial baseplate size 5, right [employer] Journey II, XLPE Deep Dished articular insert, size 11 mm, Size 5-6, right [employer] Journey Monica II resurfacing patellar component, oval, 29 mm All components were cemented using Palacos R bone cement The articulation is Oxinium on polyethylene Anesthesia: SHAWNA Surgeon: Antonio Beasley Calender Let Off Helper #1: Piper Meng Estimated Blood Loss (ml): 30 Pathology: none sent Condition: stable Disposition: PACU Indications for Procedure: The patient's knee is end-stage, and conservative management has failed. The operation of knee replacement has been discussed at length in the office, as well as potential risks and complications. These are inclusive of, but not limited to: Infection, bleeding, scarring, discomfort, stiffness, blood vessel and nerve damage, need for further surgery, failure to relieve symptoms, persistence, recurrence, or worsening of problems, loosening, dislocation, wear, blood clot, pulmonary embolism, , gait dysfunction, stiffness, and other risks as discussed in the office. Patient elects to proceed and the consent form has been signed. Operative Findings: the operative findings are consistent with severe osteoarthritis the right knee Description of Procedure: The patient was seen in the preoperative area, the consent was reviewed and the operative site was marked with a skin marker. The patient verified the procedure and the operative site. An adductor canal pain catheter and an iPACK block were placed by anesthesia in the preoperative area. The patient was then brought to the operating room and positioned on the operating room table in the supine position. Preoperative antibiotics and a gram of tranexamic acid were given intravenously. A generall anesthetic was administered by the anesthesia department. Care was taken to make sure that all pressure points were adequately padded. A tourniquet was placed on the upper thigh and the lower extremity was prepped with ChloraPrep and draped in usual sterile fashion. A universal time-out was then performed which confirmed the patient's name, surgical site, ALLERGIES, and consent. The lower extremity was then exsanguinated and tourniquet was inflated to 250 mmHg. A standard anterior midline approach to the knee was performed. The skin and subcutaneous tissue were sharply dissected down to the patellar tendon. A medial parapatellar arthrotomy was then performed. The knee was then extended, the patellar was everted, and the knee was flexed. The infra-patellar fat pad was removed in order to enhance exposure. The anterior horns of both menisci were excised, and a release was performed to the posterior medial aspect of the knee. On gross visual inspection, there was complete loss of articular cartilage in the medial and patellofemoral joint spaces. There was also significant cartilage damage in the lateral compartment. There were multiple periarticular osteophytes globally about the knee which were then removed with a Ronguer. The femoral canal was then opened with the 9.5 mm intramedullary drill. The 8 mm intramedullary jose was then inserted into the femoral canal with the distal femoral cutting guide set for 5 of valgus. The distal femoral cutting block was then pinned in place. The intramedullary jose was then removed, and the distal femur was then cut. The cutting block was then removed and the cut was checked for symmetry. The resected bone was then measured to confirm the appropriate distal femoral resection. Next, the sizing guide was then placed and set for 3 external rotation based off of the epicondylar axis and Leander's line. Pins were then placed and the drill holes, and the femur was sized with the sizing stylus. The pins were then removed, and the sizing guide was then removed. The spikes of the appropriate size femoral block was then placed into the predrilled holes, and malleted into place. Two 45 mm pins were then placed into the fixation holes on the cutting block. An marcy wing was then used to ensure there would be no notching with the anterior cut. The anterior condyles were cut without notching. The anterior chord cut was then performed, followed by the posterior cut, posterior chamfer cut, and the anterior chamfer cut. The collateral ligaments were protected during the entire process. The cutting block was then removed. Any remaining bone and osteophytes were removed from the femur with a Ronguer. Attention was then directed to the tibia. The remaining ACL was removed with a Ronguer, and the tibia was then gently subluxed forward with a large bent knee retractor. Any remaining menisci were excised. The posterior lateral corner was cauterized in order to coagulate the lateral geniculate artery. The extra medullary tibial cutting guide was then placed, set for the appropriate rotation, slope, and depth of resection. The proximal tibia cutting guide was then pinned in place. Proximal tibia was then cut and sized. A curved osteotome was then used to remove any posterior osteophytes from the distal femur. The femoral trial was placed. A narrow saw blade was then used to remove the anterior intracondylar femoral bone. The CR notch trial was then placed. The tibial trial was placed with the appropriate-sized insert. The knee was able to fully extend and flex to 130 and was stable throughout all range of motion. The knee was then extended and the patella was everted. Patella was then measured, and then using an osteotomy guide, the patella was cut at the appropriate level. The patellar component was sized. The patellar drill guide was placed and the patella was drilled. The patella trial was then placed. The knee was then taken through range of motion with the patella trial and the patella tracked normally using the no thumbs technique. The patella trial was then removed. The knee was then flexed and lug holes were drilled through the femoral trial and the femoral trial was then removed. The tibial was then re- exposed, and the tibial broach guide was then pinned in place after it was set for the appropriate rotation to allow for the most coverage without overhang. The tibia was then reamed and broached. The femoral canal was plugged with autologous bone. The cut surfaces of bone were then irrigated with pulsatile lavage. The knee was also irrigated with Irrisept solution. The components were then opened, the cement was mixed. Cement was placed on the backside of the femoral, tibial, and patellar components. Cement was then applied to the tibial surface and pressurized into the surface using finger pressurization technique. The tibial component was then applied and excess cement was removed after it was impacted securely noted to be flush with the cut surface. In similar fashion, the cement was applied to the cut femoral surface, pr essurized and using finger pressurization the component was impacted in place. Excess cement was removed. The polyethylene spacer was then implanted and locked into position. Patellar component was then applied in a similar technique and the patellar clamp was used to hold patella in place while the cement hardened. The knee was held in full extension while the cement hardened. Once the cement had fully hardened, the knee was reinspected. Any other cement extrusion was removed the final range of motion testing showed range of motion from 0-130 with excellent stability, both medial and laterally and appropriate alignment of the leg. Patella tracked normally. After the cemented hardened, the tourniquet was released and hemostasis was obtained. A second gram of transexamic acid was given intravenously. The knee was again irrigated. The knee was again taken through range of motion and found to be stable throughout all range of motion of 0-130, and the patella tracked normally. The fascia was then closed with 0 Vicryl followed by #2 strata fix suture. The subcutaneous tissue was closed with 3-0 Vicryl and 3-0 strata fix. Exofin glue was used for the skin and placed with the knee in flexion. After the glue had dried, and Optafoam silver impregnated dressing was applied. A lightly compressive dressing was applied using web roll and Gui wrap. Patient was then transferred to the stretcher and taken to recovery room in stable condition. Sponge and needle counts were correct. The metal forger's assistant BENEDICTO Shen was required due the complexity surgery and the need for a skilled surgical brace maker. She assisted in positioning, draping, retraction, and closure of the wound.
[2023-12-11] MEDS: HYDROmorphone 0.5 MG/0.5 ML SYRINGE IVP PRN (10:50)
[2023-12-11] MEDS: ROPIVACAINE 1,100 MG, SODIUM CHLORIDE 0.9% 500 ML 330 ML, EMPTY PAIN BALL 1 EACH MISCELLANE PRN (10:51)
--- NOTE | 2023-12-11 13:14 | XR ---
EXAMINATION TYPE: XR knee limited 2 views RT DATE OF EXAM: 12/11/2023 Comparison: None Clinical History: 78-year-old female Evaluation for Postop abnormality and alignment Findings: Images show placement of right total knee arthroplasty. Both distal femoral and proximal tibial compo nents of the prosthesis are well seated without periprosthetic fracture. Alignment grossly anatomic. Soft tissue air with anterior soft tissue swelling as well as intra-articular air and small joint eff usion related to recent operation. Impression: Uncomplicated postoperative appearance right total knee arthroplasty.
[2023-12-11] MEDS: SODIUM CHLORIDE 0.9% 1,000 ML IV SCH (15:06)
[2023-12-11] MEDS: LACTATED RINGERS 1,000 ML IV SCH (15:06)
[2023-12-11] MEDS ORDERED: ACETAMINOPHEN TAB 325 MG TAB PO PRN (15:26)
[2023-12-11] MEDS ORDERED: LORATADINE 10 MG TAB PO PRN (15:26)
[2023-12-11] MEDS: amLODIPine 10 MG TAB PO SCH (16:13)
[2023-12-11] MEDS: ASPIRIN 325 MG TAB PO SCH (20:41)
[2023-12-11] MEDS: HYDROcodone/APAP 7.5-325MG 1 EACH TAB PO PRN (20:41)
[2023-12-11] MEDS: SENNOSIDES-DOCUSATE SODIUM 1 EACH TAB PO SCH (20:41)
[2023-12-11] MEDS ORDERED: NON FORMULARY DRUG (Cannabidiol (Cbd) [Epidiolex] 100 MG/ML Ml) PO SCH (21:00)
--- NOTE | 2023-12-12 00:27 | CONS ---
CONSULTATION REASON FOR CONSULTATION: Advice regarding thyroid disorders and other medical issues, requested by Orthopedics. HISTORY OF PRESENT ILLNESS: This is a 78-year-old woman with a past medical history of DJD, history of thyroid disorder, Graves disease, underwent right total knee arthroplasty for severe DJD. There is no history of any fever, rigors, chills, chest pain, palpitations. PAST MEDICAL HISTORY: Reviewed include right knee weak and Graves disease, cardiac catheterization. Rest of the history and rest of the chart is also reviewed. HOME MEDICATIONS: Reviewed include Claritin. Dose and rest of medications reviewed. ALLERGIES: Reviewed include mushroom and mold. FAMILY HISTORY: History of cancer. SOCIAL HISTORY: Quit smoking. REVIEW OF SYSTEMS: Fourteen-point review is negative except as mentioned earlier. PHYSICAL EXAMINATION: VITAL SIGNS: Pulse is 75, blood pressure 186/72, respirations 16. HEENT: Conjunctivae normal. NECK: No JVD. CARDIOVASCULAR: S1, S2. RESPIRATIONS: Breath sounds diminished at the bases. ABDOMEN: Soft, nontender. LEGS: Right total knee arthroplasty. NERVOUS SYSTEM: Nonfocal. SKIN: No ulcer, rash, bleeding. JOINTS: No active deforming arthropathy. LABORATORY DATA: Not available. ASSESSMENT: 1. Status post right total knee arthroplasty. 2. Hypertension. 3. Degenerative joint disease. 4. History of Graves disease. 5. History of cardiac catheterization. RECOMMENDATIONS AND DISCUSSION: This 78-year-old woman presented with multiple medical problems. We will monitor the patient closely. Continue the current medications. DVT prophylaxis. Resume the home medications. Otherwise, I would also recommend to add Norvasc to the current regimen. Monitor blood pressure closely. Further recommendations to follow. See orders for further details. MMODL / IJN: [id number] /
--- NOTE | 2023-12-12 06:22 | P.PN ---
Progress Note - Text Progress Note Date: 12/12/23 Postoperative day # 1 status post total knee arthroplasty, under spinal anesth esia, and adductor canal catheter placed for postoperative analgesia. Currently on ropivacaine 0.2% 8 mL per hour with continuous infusion. There is no erythema, and there is no tenderness at site of catheter insertion. VAS: 3/10 Breakthrough Meds: When necessary [place] Complications: None . Plan: Plan is to continue: Plans to continue the current settings. Patient will go home as planned.
[2023-12-12] MEDS: LEVOTHYROXINE 125 MCG TAB PO SCH (06:25)
[2023-12-12 08:03] VITALS: BP 137/70; PULSE 71; RESP 16; TEMP 98.2
[2023-12-12 08:51] LABS: Basophils # (A) 0.06 X 10*3/uL (0.00-0.10); Basophils % (A) 0.6 %; Eosinophils # (A) 0.02 X 10*3/uL (0.04-0.35); Eosinophils % (A) 0.2 %; HCT 36.4 % (37.2-46.3); HGB 11.6 g/dL (12.0-15.0); Lymphocytes # (A) 1.26 X 10*3/uL (0.90-5.00); Lymphocytes % (A) 12.5 %; MCH 31.4 pg (27.0-32.0); MCHC 31.9 g/dL (32.0-37.0); MCV 98.4 FL (80.0-97.0); Mean Platelet Volume 11.6 FL (9.5-12.2); Monocytes # (A) 1.11 X 10*3/uL (0.20-1.00); NRBC Per 100 WBC 0 X 10*3/uL (0.00-0.01); Neutrophils # (A) 7.59 X 10*3/uL (1.80-7.70); Neutrophils % (A) 75.3 %; Platelet Count 244 X 10*3/uL (140-440); RDW 12.8 % (11.5-14.5); WBC 10.08 X 10*3/uL (4.50-10.00)
--- NOTE | 2023-12-12 10:01 | P.DS ---
Providers Expected date of discharge: 12/12/23 Attending physician: Antonio Beasley Consults: 12/11/23 08:46 Consult Physician Routine Consulting Provider: Marva Carvalho Consult Reason/Comments: medical management Do you want consulting provider notified?: Yes Primary care physician: Dante Burt - Discharge Diagnosis(es) (1) Osteoarthritis of right knee Current Visit: Yes Status: Acute (2) S/P total knee arthroplasty Current Visit: Yes Status: Acute Hospital Course: This is a 78-year-old female with known history of degenerative arthritis of the right knee. The patient presented for evaluation as an outpatient. After discussion and consideration patient elects to proceed with total knee arthroplasty. The patient is seen preoperatively by Dr. Beasley and medically cleared for surgery by their primary care physician. Patient is admitted to [facility] on 12/11/2023 for total knee arthroplasty. The procedure is performed without complication or sequelae. The patient is doing well postoperatively. Labs and vital signs are stable on day of discharge. On day of discharge patient's knee incision is healing well. There is minimal erythema. There is no drainage noted at this time. There is minimal soft tissue swelling to the knee. Patient has full foot and ankle motion without difficulty or pain. Calf is soft and nontender to palpation. Neurovascular status to the right lower extremity is intact. Patient is discharged home in good condition. Please see med rec for accurate list of home medications. Plan - Discharge Summary Discharge Rx Participant: Yes New Discharge Prescriptions: New Aspirin 325 mg PO BID #60 tab Sennosides [Senokot] 2 tab PO DAILY PRN #60 tablet PRN Reason: Constipation HYDROcodone/APAP 7.5-325MG [[place] 7.5-325] 1 - 2 tab PO Q6H PRN #32 tab PRN Reason: Pain Ondansetron Odt [Zofran Odt] 1 tab PO Q8HR PRN #10 tab PRN Reason: Nausea No Action Levothyroxine Sodium [Synthroid] 125 mcg PO DAILY Cannabidiol (Cbd) [Epidiolex] 1 dose PO HS Loratadine [Claritin] 10 mg PO DAILY PRN PRN Reason: Allergy Symptoms Acetaminophen [Tylenol Arthritis] 650 mg PO DIRECTED PRN PRN Reason: Pain Discharge Medication List Levothyroxine Sodium [Synthroid] 125 mcg PO DAILY 09/24/20 [History] Acetaminophen [Tylenol Arthritis] 650 mg PO DIRECTED PRN 02/21/23 [History] Cannabidiol (Cbd) [Epidiolex] 1 dose PO HS 02/21/23 [History] Loratadine [Claritin] 10 mg PO DAILY PRN 02/21/23 [History] Aspirin 325 mg PO BID #60 tab 12/11/23 [Rx] HYDROcodone/APAP 7.5-325MG [[place] 7.5-325] 1 - 2 tab PO Q6H PRN #32 tab 12/11/23 [Rx] Ondansetron Odt [Zofran Odt] 1 tab PO Q8HR PRN #10 tab 12/11/23 [Rx] Sennosides [Senokot] 2 tab PO DAILY PRN #60 tablet 12/11/23 [Rx] Follow up Appointment(s)/Referral(s): Antonio Beasley DO [Doctor of Osteopathic Medicine] - 2 Weeks Activity/Diet/Wound Care/Special Instructions: Weightbearing as tolerated with a walker. CPM 5-6h daily as tolerated. Leave dressing intact. Dressing may be removed by home care nurse or by patient in 7 days. Then change dressing twice daily until follow up. May shower with initial dressing intact and after removal. If dressing become saturated, please remove. Recommend use of compression stockings daily until follow up to help prevent swelling and blood clots. May remove at night before sleeping. Please take aspirin 325mg twice daily for 30 days to prevent blood clots. Please follow up with [facility] and call with any questions or concerns, . Discharge Disposition: HOME WITH HOME HEALTH SERVICES
== END 2023-12-12 12:08 | disposition home health service (06) ==
LOC: OR 07:18 → 4SSUR 10:35 → OR 12-12 12:08
PROVIDERS: ATTEND Orthopaedic Surgery
DX: M17.11 Unilateral primary osteoarthritis, right knee (principal); I10 Essential (primary) hypertension; G89.18 Other acute postprocedural pain; E07.9 Disorder of thyroid, unspecified; Z87.891 Personal history of nicotine dependence; Z79.890 Hormone replacement therapy; Z79.899 Other long term (current) drug therapy; Z96.652 Presence of left artificial knee joint
CPT/HCPCS: 97162; 64999; 64448; 85025; 73560; 27447; C1713; C1776; C1751; J2250; J1100; J0690 ×3; J2405; J2795; J1170